=== PATIENT | female | born 1980 | race Caucasian/White ===

== ENCOUNTER → 2018-02-01 | Outpatient (CLI) | payer OTHER ==
--- NOTE | 2018-02-01 14:28 | XR ---
Abdomen HISTORY: Pain and vomiting Frontal view of the abdomen on 2 images. No comparisons There is retained fecal debris present throughout the distribution of the transverse and ascending co troy, rectosigmoid. Lung bases are not included on the exam. No pneumoperitoneum or bowel obstruction evident. No evident pathologic calcification. IMPRESSION: Correlate for fecal stasis.
== END | disposition home or self-care (01) ==
LOC: RADXRMAIN 10:12
PROVIDERS: ATTEND Family Medicine
DX: R10.9 Unspecified abdominal pain (principal)
CPT/HCPCS: 74018

== ENCOUNTER → 2018-02-01 | Outpatient (CLI) | payer OTHER ==
[2018-02-01 10:33] LABS: Basophils % (A) 1 %; Eosinophils # (A) 0.2 k/uL (0-0.7); Eosinophils % (A) 2 %; HCT 42.3 % (34.0-46.0); HGB 14.1 gm/dL (11.4-16.0); Lymphocytes # (A) 1.9 k/uL (1.0-4.8); Lymphocytes % (A) 26 %; MCHC 33.4 g/dL (31.0-37.0); MCV 86.9 fL (80.0-100.0); Mean Platelet Volume 8.7; Monocytes # (A) 0.4 k/uL (0-1.0); Monocytes % (A) 6 %; Neutrophils # (A) 4.8 k/uL (1.3-7.7); Neutrophils % (A) 64 %; Platelet Count 197 k/uL (150-450); RBC 4.87 m/uL (3.80-5.40); RDW 13.1 % (11.5-15.5); WBC 7.5 k/uL (3.8-10.6)
[2018-02-01 11:06] LABS: ALT 22 U/L (9-52); AST 21 U/L (14-36); Albumin 4.4 g/dL (3.5-5.0); Alkaline Phosphatase 55 U/L (38-126); Amylase 48 U/L (30-110); Anion Gap 13 mmol/L; Blood Urea Nitrogen 10 mg/dL (7-17); Calcium 9.8 mg/dL (8.4-10.2); Carbon Dioxide 28 mmol/L (22-30); Chloride 102 mmol/L (98-107); Cholesterol 156 mg/dL (<200); Glucose 84 mg/dL (74-99); HDL Cholesterol 65 mg/dL (40-60); LDL Cholesterol,Calculated 82 mg/dL (0-99); Lipase 117 U/L (23-300); Potassium 4.1 mmol/L (3.5-5.1); Sodium 143 mmol/L (137-145); Total Bilirubin 0.6 mg/dL (0.2-1.3); Total Protein 7.4 g/dL (6.3-8.2); Triglycerides 44 mg/dL (<150)
--- NOTE | 2018-02-01 11:16 | US ---
EXAMINATION TYPE: US abdomen complete DATE OF EXAM: 02/01/2018 COMPARISON: NONE CLINICAL HISTORY: 37-year-old female R10.9 abdominal pain. Technique: Multiple sonographic images of the abdomen are obtained. FINDINGS: Liver Length: 11.9 cm Gallbladder Wall: 0.2 cm CBD: 0.2 cm Spleen: 11.2 cm Right Kidney: 9.8 x 3.8 x 5.1 cm Left Kidney: 10.3 x 4.0 x 4.5 cm Pancreas: Tail partially obscured by overlying bowel gas Liver: wnl Gallbladder: wnl Evidence for sonographic Mcmahan's sign: no CBD: wnl Spleen: wnl Right Kidney: No hydronephrosis Left Kidney: No hydronephrosis Upper IVC: wnl Abd Aorta: right iliac not seen, probably due to technical limitations. IMPRESSION: Unremarkable sonographic examination of the abdomen.
--- NOTE | 2018-02-01 11:18 | US ---
EXAMINATION TYPE: US pelvic complete DATE OF EXAM: 02/01/2018 COMPARISON: NONE CLINICAL HISTORY: 37-year-old female R10.9 abdominal pain. TECHNIQUE: Transabdominal sonographic images of the pelvis were acquired. Date of LMP: 01/18/18 Findings: Uterus: Anteverted measuring 11.2 x 4.2. x 5.6 cm Endometrial Stripe: 0.5 cm, within normal limits. Right Ovary: 4.1 x 1.7 x 1.9 cm for a volume of 6.9 mL. Follicular changes present. Left Ovary: 3.5 x 2.1 x 1.8 cm for a volume of 6.9 mL. Follicular changes present. No evident adnexal abnormality or cul-de-sac free fluid. IMPRESSION: Normal-sized ovaries with follicular change. No specific abnormality of the pelvis on transabdominal scanning.
[2018-02-01 15:55] LABS: Gliadin AB IgA, Unit 0.2 U/mL
[2018-02-01 17:20] LABS: Vitamin D 25 Hydroxy 19.5 ng/mL (30.0-100.0)
== END | disposition home or self-care (01) ==
LOC: RADUSWWP 08:55
PROVIDERS: ATTEND Family Medicine
DX: R10.9 Unspecified abdominal pain (principal); Z00.00 Encounter for general adult medical examination without abnormal findings
CPT/HCPCS: 36415; 76700; 76856; 80053; 80061; 82150; 82306; 83516; 83690; 84443; 85025